=== PATIENT | female | born 1980 | race Caucasian/White ===

== ENCOUNTER 2021-02-19 14:40 | Emergency (ER) | payer MEDICAID ==
[~2021-02-19] VITALS: Ht 157.5 cm; Wt 82.0 kg
[2021-02-19] MEDS ORDERED: HYDROCODONE/ACETAMINOPHEN 5/325MG TABLET PO ONE (15:15)
[2021-02-19 15:23] VITALS: BP 132/82
[2021-02-19] MEDS ORDERED: HYDR-4001 MT ×2 (16:29→16:55)
[2021-02-19] MEDS ORDERED: IBUP-2029 MT ×3 (16:29→16:56)
== END 2021-02-19 16:37 | disposition home or self-care (01) ==
LOC: ER 14:52
DX: S80.01XA Contusion of right knee, initial encounter (principal); X37.1XXA Tornado, initial encounter; Y93.89 Activity, other specified; Y92.89 Other specified places as the place of occurrence of the external cause; Y99.8 Other external cause status
CPT/HCPCS: 73562; 99283; L1830; Z7610